=== PATIENT | female | born 1940 | race Caucasian/White ===

== ENCOUNTER → 2023-07-04 13:21 | Outpatient (REF) | payer MEDICARE, BC, SELFPAY | LOC: HWWDC 13:21 | PROVIDERS: ATTENDING PHYSICIAN Internal Medicine Geriatric Medicine | DX: Z12.31 Encounter for screening mammogram for malignant neoplasm of breast (principal) | CPT/HCPCS: 77063; 77067 ==

== ENCOUNTER → 2024-07-14 14:16 | Outpatient (REF) | payer MEDICARE, SELFPAY ==
[2024-07-14 11:04] LABS: % Basophils 0.7 % (0-2); % Eosinophils 4.1 % (0-6); % Immature Granulocytes 0.4 % (0-0.5); % Lymphocytes 17.2 % (20.5-51.1); % Monocytes 9.1 % (1.7-9.3); % Neutrophils 68.5 % (42.2-75.2); Absolute Basophils 0.1 10^3/uL (0-0.2); Absolute Eosinophils 0.3 10^3/uL (0-0.7); Absolute Lymphocytes 1.3 10^3/uL (1.2-3.4); Absolute Monocytes 0.7 10^3/uL (0.1-0.6); Absolute Neutrophils 5.1 10^3/uL (1.4-6.5); Hematocrit 28.3 % (37.0-47.0); Hemoglobin 8.1 g/dL (12.0-16.0); Mean Corp Hgb Conc. 28.6 g/dL (33.0-37.0); Mean Corpuscular Hgb 23.1 pg (27.0-31.0); Mean Corpuscular Volume 80.9 fL (81.0-99.0); Mean Platelet Volume 8.3 fL (7.4-10.4); Platelet Count 354 10^3/uL (130-400); Red Cell Dist. Width 17.2 % (11.5-14.5); White Blood Cell Count 7.5 10^3/uL (4.8-10.8)
== END ==
LOC: OIDL 14:16
PROVIDERS: ATTENDING PHYSICIAN Nurse Practitioner Adult Health
DX: D50.9 Iron deficiency anemia, unspecified (principal)
CPT/HCPCS: 85025

== ENCOUNTER 2025-03-03 15:58 | Emergency (ER) | payer MEDICARE, BC, SELFPAY ==
[2025-03-03 16:10] VITALS: BP 173/116
[2025-03-03 16:40] LABS: Hematocrit 38.9 % (37.0-47.0); Hemoglobin 12.6 g/dL (12.0-16.0); Mean Corp Hgb Conc. 32.4 g/dL (33.0-37.0); Mean Corpuscular Volume 92.8 fL (81.0-99.0); Nucleated Red Blood Cells % 0 %; Platelet Count 318 10^3/uL (130-400); Red Cell Dist. Width 14.1 % (11.5-14.5)
[2025-03-03 16:58] LABS: ALT (SGPT) 14 U/L (0-35); AST (SGOT) 22 U/L (14-36); Albumin 4.2 g/dl (3.5-5.0); Alkaline Phosphatase 87 U/L (38-126); Blood Urea Nitrogen 20 mg/dl (7-17); Calcium 9.0 mg/dl (8.4-10.2); Carbon Dioxide 30 mmol/L (22-30); Chloride 102 mmol/L (98-107); Glucose 104 mg/dl (70-99); Potassium 4.4 mmol/L (3.5-5.1); Sodium 137 mmol/L (135-145)
[2025-03-03 17:15] LABS: Total Protein 7.5 g/dl (6.3-8.2); eGFR > 60.00
--- NOTE | 2025-03-03 18:18 | ED.MUSCINJ ---
HPI-Injury
General
Chief Complaint: Fall
Source: patient
Exam Limitations: none
Time Seen by Provider: 03/03/25 18:08
History of Present Illness-Injury
Initial Injury comments:
84-year-old female on Xarelto presents for evaluation and referral from family doctor's office for evaluation of fall. She fell several days ago and struck her face. She was seen at the urgent care and x-rays of the right shoulder and face were
obtained which were negative. Family doctor sent her in to evaluate for any head bleed. He denies headache blurry vision nausea or vomiting. She denies neck pain. She does note fatigue. No other complaints at this time
Past History
Past History
ED Past Medical History: Arrthythmia (Atrial fibrillation) and HTN
Social History
Tobacco: Non-smoker
Alcohol: Occasional
Drug: None
Personal:
Living: with family
Phy Exam
Physical Exam
Physical Exam:
General: Well-appearing female no acute respiratory distress
HEENT: Normal cephalic atraumatic
Heart: tachycardic but regular
Lungs: Clear
MSK: c-spine nontender, generalized tenderness about right shoulder
Neuro: alert and oriented no facial asymmetry
Injury Course
Orders/Labs/Results
Orders:
Orders
03/03/25 16:16
Electrocardiogram (*1) Urgent
Reason for Study: Tachycardia
CT Head W/o Iv Contrast Urgent
Comment: on Xarelto
Reason For Exam: fall, head injury
03/03/25 16:17
EKG- Treatment ONCE
03/03/25 16:27
Complete Blood Count/With Diff Urgent
Comprehensive Metabolic Panel Urgent
TSH Reflex To Free T4 Urgent
03/03/25 18:17
Cardiac Monitoring- Treatment ONCE
Abnormal Lab Results
03/03/25
16:27
RBC 4.19 L 10^6/uL
(4.20-5.40)
MCHC 32.4 L g/dL
(33.0-37.0)
Abs Immat Gran (auto) 0.1 H 10^3/uL
(0-0.05)
Absolute Neuts (auto) 6.6 H 10^3/uL
(1.4-6.5)
Absolute Monos (auto) 0.9 H 10^3/uL
(0.1-0.6)
Lymphocytes % 17.9 L %
(20.5-51.1)
BUN 20 H mg/dl
(7-17)
Glucose 104 H mg/dl
(70-99)
03/03/25 16:27
03/03/25 16:27
MDM/Problems Addressed
Differential Diagnosis Includes:
Patient presents for evaluation of head injury. She fell several days ago and is on [facility] doctor concerned about intracranial hemorrhage. CT of the head was performed and was negative. EKG was performed out from which showed sinus
tachycardia with a rate in the 120s. Patient denies really any other symptoms other than her pain from her shoulder. No recent fever or illness. She admits to not drinking enough water. No urinary symptoms. Unlikely to be PE secondary to
anticoagulated state. Will place patient on monitor to evaluate for persistent tachycardia
*Pulse Oximetry
SaO2: 94
Oxygen Mode of Delivery: Room air
Patient hypoxic: no
*Critical Care Note
Total Time (30-74mins, 75-104mins- exclusive of procedures): Not Applicable
Update Note
Update Note:
Patient was on the monitor. She is persistently tachycardic. Still looks like sinus tachycardia. Patient has been ambulatory here walking to the bathroom. She states she is due for her metoprolol. Offered her fluids or more of a workup to
evaluate sources of tachycardia like infectious cause. Patient and her daughter state that she is under significant mount of stress taking care of her and things and they have had issues with the caregivers. Patient is due for her
metoprolol. She declined any intervention here and wishes to go home. She will follow-up with her church communications administrator. Her daughter is in agreement.
ED Attending Note
-
Portions of this chart may have been created with voice recognition software.� Occasional wrong word or��sound alike� substitutions may have occurred due to the inherent limitations of voice recognition software.
Discharge Plan
Departure
Patient Disposition: Home (Routine Discharge)
Date of Disposition: 03/03/25
Time of Disposition: 19:01
Patient with high blood pressure during this ER visit?: No
Discharge Problem:
Head injury
Instructions: Concussion, Adult (DC)
Referrals:
Leti Delatorre MD [Family Provider]
Activity Restrictions/Additional Instructions:
Please return here for any worsening symptoms. As discussed, your heart rate was high today. Take your metoprolol as planned. Please follow-up with a community service technician as planned. Return otherwise
Interventions
Interventions:
*Risk Screen - Suicide Last Done: 03/03/25 16:10
*General Assessment Last Done: 03/03/25 16:10
ED-Musculoskeletal Assessment Last Done: 03/03/25 18:36
ED- Neurological Assessment Last Done: 03/03/25 18:36
ED-Skin Assessment Last Done: 03/03/25 18:36
Discharge Date and Time
Print Language: ISRAELI
[2025-03-03 18:31] VITALS: BP 144/105
[2025-03-03 19:00] VITALS: BP 157/114
== END 2025-03-03 19:14 | disposition home or self-care (01) ==
LOC: EMR 15:58
PROVIDERS: EMERGENCY PHYSICIAN Emergency Medicine; FAMILY PHYSICIAN Internal Medicine Geriatric Medicine
DX: S09.90XA Unspecified injury of head, initial encounter (principal); R00.0 Tachycardia, unspecified; I48.91 Unspecified atrial fibrillation; I10 Essential (primary) hypertension; Z79.01 Long term (current) use of anticoagulants; Z63.79 Other stressful life events affecting family and household; W19.XXXA Unspecified fall, initial encounter
CPT/HCPCS: 99284; 70450; 80053; 84443; 85025; 93005